=== PATIENT | female | born 1990 | race Caucasian/White ===

== ENCOUNTER 2019-09-19 18:15 | Emergency (ER) | payer OTHER, MEDICAID ==
[~2019-09-19] VITALS: Ht 154.9 cm; Wt 77.3 kg
[2019-09-19 18:19] VITALS: Ht 154.9 cm; Wt 77.3 kg
[2019-09-19] MEDS ORDERED: LOPRESSOR25 MG PO ×2 (18:26→18:31)
[2019-09-19] MEDS ORDERED: REMERON30 MG PO (18:27)
[2019-09-19] MEDS ORDERED: DIFLUCAN200 MG PO ×2 (18:27→18:28)
[2019-09-19] MEDS ORDERED: PROTONIX40 MG PO (18:27)
[2019-09-19] MEDS ORDERED: CYMBALTA60 MG PO (18:27)
[2019-09-19] MEDS ORDERED: DILAUDID8 MG PO (18:29)
[2019-09-19] MEDS ORDERED: PHENERGAN25 M1 PO (18:29)
[2019-09-19] MEDS ORDERED: FOLIC ACID1 MG PO (18:29)
[2019-09-19] MEDS ORDERED: KLONOPIN1 MG PO (18:30)
[2019-09-19] MEDS ORDERED: NEURONTIN 300300 MG PO (18:31)
[2019-09-19] MEDS ORDERED: SEROQUEL50 MG PO (18:32)
[2019-09-19 18:52] LABS: BASOPHILS 0.3 % (0-2); EOSINOPHILS 2.2 % (0-7); HEMATOCRIT 36.4 % (36.0-48.0); HEMOGLOBIN 11.5 g/dL (12-16); IMMATURE GRANULOCYTES 0.3 % (0-5); LYMPHOCYTES 23.4 % (15-50); MCH 27.8 pg (26.0-34.0); MCHC 31.6 g/dL (31.0-37.0); MCV 88.1 fL (80.0-100.0); MEAN PLATELET VOLUME 11.3 fL (7.4-10.4); MONOCYTES 6.4 % (2-11); NEUTROPHILS 67.4 % (40-80); PLATELET COUNT 241 10x3/uL (130-400); RBC 4.13 10x6/uL (4.00-5.40); RDW 14.6 % (11.5-14.5); WBC 7.2 10x3/uL (4.8-10.8)
[2019-09-19 19:09] LABS: CALC OSMOLALITY 279 mosm/kg (275-300); CALCIUM 8.6 mg/dL (8.5-10.1); CARBON DIOXIDE 23.7 mmol/L (21.0-32.0); CHLORIDE - SERUM 107 mmol/L (98-107); CREATININE - SERUM 0.8 mg/dL (0.6-1.3); GLUCOSE 93 mg/dL (74-106); POTASSIUM - SERUM 3.9 mmol/L (3.5-5.1); SODIUM 141 mmol/L (136-145); UREA NITROGEN 10 mg/dL (7-18); eGFR NON AFRICAN AMERICAN 90 mL/min (90-120)
[2019-09-19 19:14] LABS: ALBUMIN 2.8 g/dL (3.4-5.0); ALKALINE PHOSPHATASE 285 U/L (46-116); ALT (SGPT) 53 U/L (10-68); BILIRUBIN - TOTAL 0.34 mg/dL (0.2-1.3); HCG SERUM NEGATIVE (NEGATIVE); LIPASE 100 U/L (73-393); PROTEIN - SERUM 7.5 g/dL (6.4-8.2)
[2019-09-19 20:02] LABS: ERYTHROCYTE SEDIMENTATION RATE 47 mm/hr (0-20)
[2019-09-19] MEDS ORDERED: ZOFRAN8 MG PO (20:36)
[2019-09-20 00:10] VITALS: BP 114/77
== END 2019-09-20 00:15 | disposition home or self-care (01) ==
LOC: D.ER 18:15
PROVIDERS: Family Medicine
DX: K50.90 Crohn's disease, unspecified, without complications (principal); R10.9 Unspecified abdominal pain; G62.9 Polyneuropathy, unspecified; F32.9 Major depressive disorder, single episode, unspecified; F17.210 Nicotine dependence, cigarettes, uncomplicated